=== PATIENT | female | born 1990 | race Two or more races ===

== ENCOUNTER → 2024-08-24 12:12 | Outpatient (REF) | payer BC, SELFPAY | LOC: HWWDC 12:12 | PROVIDERS: ATTENDING PHYSICIAN Nurse Practitioner Adult Health; FAMILY PHYSICIAN Nurse Practitioner Adult Health | DX: Z12.31 Encounter for screening mammogram for malignant neoplasm of breast (principal) | CPT/HCPCS: 77063; 77067 ==

== ENCOUNTER → 2025-07-19 09:45 | Outpatient (REF) | payer BC, SELFPAY | LOC: WDC 09:45 | PROVIDERS: ATTENDING PHYSICIAN Nurse Practitioner Adult Health; FAMILY PHYSICIAN Nurse Practitioner Adult Health | DX: N63.0 Unspecified lump in unspecified breast (principal); N63.14 Unspecified lump in the right breast, lower inner quadrant | CPT/HCPCS: 76642; 77062; 77066 ==